=== PATIENT | male | born 1985 | race Caucasian/White ===

== ENCOUNTER 2020-08-16 11:25 | Emergency (ER) | payer BC, SELFPAY ==
[2020-08-16 12:00] VITALS: BP 121/77; PULSE 83; RESP 14; TEMP 36.9; O2SAT 98; BMI 24.3
--- NOTE | 2020-08-16 12:04 | HMH.EDUTC ---
[facility] [place] Disposition Clinical Impression: Exposure to COVID-19 virus Disposition: Home, Self-Care Condition on Discharge: Good Instructions: Preventing the Spread of Coronavirus Discharge Instructions Additional Instructions: Drink plenty of fluids. Take tylenol for pain or fever. Follow up with your regular doctor. GO TO THE ER FOR ANY WORSENING SYMPTOMS Referrals: Finesse Esquivel [Primary Care Provider] - Time of Disposition: 12:05 Medical Decision Making - Medical Records Medical records reviewed: No: I reviewed the patient's medical records. - To Inquiry Pt receiving controlled substance: No Vital Signs: 08/16/20 12:00 08/16/20 12:16 Temperature 98.5 F 98.5 F Temperature Source Oral Oral Pulse Rate 83 Pulse Rate [Radial] 83 Respiratory Rate 14 14 Blood Pressure 121/77 Blood Pressure [Right Arm] 121/77 Blood Pressure Mean [Right Arm] 91 Blood Pressure Source Automatic Cuff Blood Pressure Source [Right Arm] Automatic Cuff Blood Pressure Position Sitting Blood Pressure Position [Right Arm] Sitting 02 Sat by Pulse Oximetry 98 Oxygen Delivery Method Room Air Room Air Orders (Tests/Meds): ORDERS Category Date Time Status Covid-19 Nasal PCR Sendout Pee Stat Lab 08/16/20 11:51 Received [facility] [place] HPI - General Stated complaint: covid exposure Time Seen by Provider: 08/16/20 12:04 Mode of Arrival: Ambulatory Source of Information: Patient Limitations: No Limitations Description of Symptoms (Recalled from Triage Doc. by RN): covid test HEENT Symptoms (Recalled from RN notes): No Resp Symptoms (Recalled from RN notes): No Skin Symptoms (Recalled from RN notes): No MS Symptoms (Recalled from RN notes): No Functional Status (Recalled from RN notes): wnl - History of Present Illness Provider Complaint: He was exposed to covid by both his parents having it. He denies any symptoms at this time. - Related Data Allergies Allergy/AdvReac Type Severity Reaction Status Date / Time No Known Allergies Allergy Verified 08/16/20 12:03 - Worker's Comp Is this a Worker's Comp case?: No [facility] History - Hepatitis A Screen Drug use history?: No High risk sexual behaviors?: No History of sexually transmitted infection?: No Currently employed?: No Childcare worker?: No Do you have indoor plumbing?: Yes Do you have electricity?: Yes Attestation statement:: This patient has been screened for Hepatitis A risk factors. I have reviewed the patient's past medical history: Yes - Social History Smoking Status: Current every day smoker Tobacco Type: cigarettes # Packs/Day (cigarettes): 1 Alcohol Intake: never Occupational Status: other ROS Obtained: Yes All systems reviewed & no additional complaints - Constitutional Constitutional: Reports system reviewed and no additional complaints, except as docu - Eyes Eyes: Reports system reviewed and no additional complaints, except as docu - ENT Ears, Nose, Mouth, and Throat: Reports system reviewed and no additional complaints, except as docu - Cardiovascular Cardiovascular: Reports system reviewed and no additional complaints, except as docu - Respiratory Respiratory: Yes system reviewed and no additional complaints, except as docu Physical Exam - General General appearance: alert, in no apparent distress - Head Head exam: atraumatic, normocephalic, normal inspection - Eye Eye exam: Present: normal appearance, PERRL, EOMI - ENT ENT exam: Present: normal exam, normal oropharynx, mucous membranes moist, TM's normal bilaterally, normal external ear exam - Neck Neck exam: Present: normal inspection, full ROM, trachea midline. Absent: meningismus, lymphadenopathy - Chest Chest inspection: Present: normal inspection, symmetric chest wall rise. Absent: tenderness - Respiratory Respiratory exam: Present: normal lung sounds bilaterally. Absent: respiratory distress - Cardiovascular Cardiovascular exam: Presen
[2020-08-16 12:16] VITALS: BP 121/77; PULSE 83; RESP 14; TEMP 36.9; O2SAT 98
[2020-08-17 14:45] LABS: Covid-19 Nasal PCR Sendout Lex NOT DETECTED
== END 2020-08-16 12:17 | disposition home or self-care (01) ==
PROVIDERS: Emergency Provider Nurse Practitioner Family; PCP Pediatrics
DX: Z20.828 Contact with and (suspected) exposure to other viral communicable diseases (principal); F17.210 Nicotine dependence, cigarettes, uncomplicated
CPT/HCPCS: 99201; U0004

== ENCOUNTER 2021-06-29 08:59 | Emergency (ER) | payer BC, SELFPAY ==
[2021-06-29 09:00] VITALS: BP 122/76; PULSE 64; RESP 18; TEMP 36.6; O2SAT 98; BMI 25.4
--- NOTE | 2021-06-29 09:21 | HMH.EDUTC ---
[facility] [place] Disposition Clinical Impression: Conjunctivitis Qualifiers: Conjunctivitis type: acute Acute conjunctivitis type: unspecified Laterality: right Qualified Code(s): H10.31 - Unspecified acute conjunctivitis, right eye Disposition: Home, Self-Care Condition on Discharge: Good Instructions: Conjunctivitis Additional Instructions: Use the eye drops as directed. Strict hand washing in the house hold, because conjunctivitis is very contagious. Follow up with your regular doctor. GO TO THE ER FOR ANY WORSENING SYMPTOMS OR CONCERNS If you start to have the same symptoms in your other eye, start the drops in that eye too. It is hard to keep from spreading it to your other eye. Prescriptions: predniSONE [Deltasone 10mg tablet] 10 mg PO BID 3 Days #6 tab Transmission Status: Received by [id number] Moxifloxacin HCl [Vigamox] 1 drp EYE-RIGHT TID 7 Days #3 ml Transmission Status: Received by [id number] Referrals: Finesse Esquivel [Primary Care Provider] - Time of Disposition: 09:36 Medical Decision Making - Medical Records Medical records reviewed: No: I reviewed the patient's medical records. - To Inquiry Pt receiving controlled substance: No Vital Signs: 06/29/21 09:00 06/29/21 09:35 Temperature 97.9 F 97.9 F Temperature Source Oral Pulse Rate 64 Pulse Rate [Left Brachial] 64 Respiratory Rate 18 18 Blood Pressure 122/76 Blood Pressure [Left Arm] 122/76 Blood Pressure Mean [Left Arm] 91 Blood Pressure Source [Left Arm] Automatic Cuff Blood Pressure Position [Left Arm] Sitting 02 Sat by Pulse Oximetry 98 Oxygen Delivery Method Room Air [facility] [place] HPI - General Stated complaint: eye pain,cold Time Seen by Provider: 06/29/21 09:15 Mode of Arrival: Ambulatory Source of Information: Patient Limitations: No Limitations Description of Symptoms (Recalled from Triage Doc. by RN): PATIENT C/O SWELLING, SORENESS, AND DISCHARGE FROM RIGHT EYE X 2 DAYS HEENT Symptoms (Recalled from RN notes): Yes Resp Symptoms (Recalled from RN notes): No Skin Symptoms (Recalled from RN notes): No MS Symptoms (Recalled from RN notes): No Functional Status (Recalled from RN notes): WNL - History of Present Illness Provider Complaint: He c/o right eye itching and redness for the past 2 days. He has been exposed to pink eye at home by his child having it. He denies any vision changes. He denies any eye pain, other than the irritation. He denies any known injury or foreign body. - Related Data Previous Rx's Medication Instructions Recorded Moxifloxacin HCl [Vigamox] 1 drp EYE-RIGHT TID 7 Days #3 ml 06/29/21 predniSONE [Deltasone 10mg tablet] 10 mg PO BID 3 Days #6 tab 06/29/21 Allergies Allergy/AdvReac Type Severity Reaction Status Date / Time No Known Allergies Allergy Verified 08/16/20 12:03 - Worker's Comp Is this a Worker's Comp case?: No [facility] History - Hepatitis A Screen Drug use history?: No High risk sexual behaviors?: No History of sexually transmitted infection?: No Currently employed?: No Childcare worker?: No Do you have indoor plumbing?: Yes Do you have electricity?: Yes Attestation statement:: This patient has been screened for Hepatitis A risk factors. I have reviewed the patient's past medical history: Yes - Social History Smoking Status: Current every day smoker Tobacco Type: cigarettes # Packs/Day (cigarettes): 1 Alcohol Intake: never Occupational Status: other ROS Obtained: Yes All systems reviewed & no additional complaints - Constitutional Constitutional: Denies chills, Denies fever(s) - Eyes Eyes: Reports as per HPI - ENT Ears, Nose, Mouth, and Throat: Denies dizziness, Denies otalgia, Denies sore throat - Cardiovascular Cardiovascular: Denies chest pain - Respiratory Respiratory: Denies chest congestion, Denies cough, Denies stridor, Denies wheezing Physical Exam - General General appearance: alert, in no apparent dist
[2021-06-29 09:35] VITALS: BP 122/76; PULSE 64; RESP 18; TEMP 36.6; O2SAT 98
== END 2021-06-29 09:39 | disposition home or self-care (01) ==
PROVIDERS: Emergency Provider Nurse Practitioner Family; PCP Pediatrics
DX: H10.11 Acute atopic conjunctivitis, right eye (principal)
CPT/HCPCS: 99202; G0463

== ENCOUNTER 2021-07-03 09:51 | Emergency (ER) | payer BC, SELFPAY ==
[2021-07-03 10:30] VITALS: BP 125/84; PULSE 61; RESP 18; TEMP 36.7; O2SAT 96; BMI 25.4
[2021-07-03 10:46] LABS: UTC Strep Screen (Rapid) Positive (Negative)
--- NOTE | 2021-07-03 11:13 | HMH.EDUTC ---
[facility] [place] Clinical Impression: Strep throat Allergic conjunctivitis Qualifiers: Laterality: bilateral Qualified Code(s): H10.13 - Acute atopic conjunctivitis, bilateral Disposition: Home, Self-Care Condition on Discharge: Good Instructions: Strep Throat, DI for Strep Throat Additional Instructions: Use the pataday eye drops as directed. Take the antibiotics as directed. Follow up with your primary care doctor. Drink plenty of fluids. Take tylenol or ibuprofen for pain or fever. GO TO THE ER FOR ANY WORSENING SYMPTOMS Throw your tooth brush away and get a new one. Prescriptions: Amoxicillin/Potassium Clav [Augmentin 875-125 Tablet] 1 tab PO Q12H 10 Days #20 tab [id number] methylPREDNISolone [Medrol] 4 mg PO DIRECTED 6 Days #21 packet Transmission Status: Received by [id number] Olopatadine HCl [Pataday] 2.5 ml OP DIRECTED 10 Days #2.5 ml Transmission Status: [email or web address] Referrals: Finesse Esquivel [Primary Care Provider] - Time of Disposition: 11:26 Medical Decision Making - Medical Records Medical records reviewed: No: I reviewed the patient's medical records. - To Inquiry Pt receiving controlled substance: No Vital Signs: 07/03/21 10:30 07/03/21 11:25 Temperature 98.0 F 98.0 F Temperature Source Oral Pulse Rate 61 Pulse Rate [Right Brachial] 61 Respiratory Rate 18 18 Blood Pressure 125/84 Blood Pressure [Right Arm] 125/84 Blood Pressure Mean [Right Arm] 97 Blood Pressure Source [Right Arm] Automatic Cuff Blood Pressure Position [Right Arm] Sitting 02 Sat by Pulse Oximetry 96 Oxygen Delivery Method Room Air - Lab Data Lab Results 07/03/21 10:42: Strep Scn Rapid Clinic Positive A [facility] [place] - General Stated complaint: Sore throat; ear ache; Time Seen by Provider: 07/03/21 11:17 Mode of Arrival: Ambulatory Source of Information: Patient Limitations: No Limitations Description of Symptoms (Recalled from Triage Doc. by RN): PATIENT C/O WATERY EYES, EAR ACHE/PRESSURE, SORE THROAT AND COUGH THAT STARTED 2 DAYS AGO HEENT Symptoms (Recalled from RN notes): No Resp Symptoms (Recalled from RN notes): No Skin Symptoms (Recalled from RN notes): No MS Symptoms (Recalled from RN notes): No Functional Status (Recalled from RN notes): WNL - History of Present Illness Provider Complaint: He is back today with c/o sore throat. His eyes are still watering and burning also. His children are also sick with sore throat. - Related Data Previous Rx's Medication Instructions Recorded Amoxicillin/Potassium Clav 1 tab PO Q12H 10 Days #20 tab 07/03/21 [Augmentin 875-125 Tablet] Olopatadine HCl [Pataday] 2.5 ml OP DIRECTED 10 Days #2.5 07/03/21 ml methylPREDNISolone [Medrol] 4 mg PO DIRECTED 6 Days #21 07/03/21 packet Allergies Allergy/AdvReac Type Severity Reaction Status Date / Time No Known Allergies Allergy Verified 08/16/20 12:03 - Worker's Comp Is this a Worker's Comp case?: No [facility] History - Hepatitis A Screen Drug use history?: No High risk sexual behaviors?: No History of sexually transmitted infection?: No Currently employed?: No Childcare worker?: No Do you have indoor plumbing?: Yes Do you have electricity?: Yes Attestation statement:: This patient has been screened for Hepatitis A risk factors. I have reviewed the patient's past medical history: Yes - Social History Smoking Status: Current every day smoker Tobacco Type: cigarettes # Packs/Day (cigarettes): 1 Alcohol Intake: never Occupational Status: other ROS Obtained: Yes All systems reviewed & no additional complaints - Constitutional Constitutional: Reports chills, Denies fever(s), Reports poor appetite, Reports malaise - Eyes Eyes: Denies eye discharge - ENT Ears, Nose, Mouth, and Throat: Reports as per HPI - Cardiovascular Cardiovascular: Reports chest pain
[2021-07-03 11:25] VITALS: BP 125/84; PULSE 61; RESP 18; TEMP 36.7; O2SAT 96
== END 2021-07-03 11:32 | disposition home or self-care (01) ==
PROVIDERS: Emergency Provider Nurse Practitioner Family; PCP Pediatrics
DX: J02.0 Streptococcal pharyngitis (principal); H10.13 Acute atopic conjunctivitis, bilateral
CPT/HCPCS: 87880; 99202; G0463

== ENCOUNTER → 2021-09-29 15:30 | Outpatient (CLI) | payer OTHER, SELFPAY ==
--- NOTE | 2021-09-29 15:48 | XR_ITS ---
PROCEDURE: XR CHEST 2V CLINICAL HISTORY: COUGH COMPARISON: No exams were available for comparison FINDINGS: The cardiomediastinal silhouette and pulmonary vascularity are within normal limits. The lungs are clear without infiltrates, suspicious nodules, or pleural effusions. No acute bony abnormalities. IMPRESSION: No acute findings. Dictated by: Kervin Taylor MD 09/29/2021 16:36 Kervin Taylor MD in [place] 09/29/2021 16:36
[2021-09-29 15:59] LABS: Basophils # 0.1 K/mm3 (0-0.2); Basophils % 0.8 % (0.1-2.0); Eosinophils # 0.4 K/mm3 (0.0-0.4); Hematocrit 47.6 % (42.0-52.0); Hemoglobin 15.6 g/dL (14.1-18.0); Lymphocytes # 1.7 K/mm3 (0.7-4.5); Mean Corpuscular HGB Conc 32.8 g/dL (31.8-35.4); Mean Corpuscular Hemoglobin 31.4 pg (27.0-31.2); Mean Corpuscular Volume 95.8 fl (80-94); Mean Platelet Volume 7.6 fl (7.4-10.4); Monocytes # 0.7 K/mm3 (0.1-1.0); Monocytes % 7.7 % (1.7-9.3); Neutrophils # 5.8 K/mm3 (1.8-7.8); Neutrophils % 66.5 % (37.0-80.0); Platelet Count 417 K/mm3 (142-424); Red Blood Count 4.97 M/mm3 (4.60-6.20); White Blood Count 8.7 K/mm3 (4.8-10.8)
[2021-09-29 16:41] LABS: Alanine Aminotransferase 29 U/L (12-78); Albumin Level 4.5 g/dl (3.5-5.0); Albumin/Globulin Ratio 1.7 (1.1-1.8); Alkaline Phosphatase 86 U/L (38-126); Anion Gap 14.6 mEq/L (5-15); Aspartate Amino Transferase 45 U/L (17-59); Bilirubin,Total 0.5 mg/dl (0.2-1.3); Blood Urea Nitrogen 21 mg/dl (9-20); Calcium 9.9 mg/dl (8.4-10.2); Carbon Dioxide 27 mmol/L (22.0-30.0); Chloride 102 mmol/L (98-107); Estimated Glomerular Filt Rate 111 ml/min (>60); GFR (African American) 134 ML/MIN (>60); Globulin 2.7 g/dL (1.3-3.2); Glucose 101 mg/dl (74-100); Potassium 4.6 mmoL/L (3.5-5.1); Sodium 139 mmol/L (136-145); Total Protein,Serum 7.2 g/dl (6.3-8.2)
[2021-09-29 16:47] LABS: C-Reactive Protein 10.7 mg/L (0-4)
[2021-09-29 17:12] LABS: Erythrocyte Sedimentation Rate 38 mm/hr (0-15)
[2021-09-29 17:17] LABS: Thyroid Stimulating Hormone 1.35 uIU/mL (0.465-4.68)
== END ==
PROVIDERS: Visit Provider Family Medicine
DX: G44.52 New daily persistent headache (NDPH) (principal); R05.9 Cough, unspecified
CPT/HCPCS: 36415; 71046; 80053; 84443; 85025; 85651; 86140

== ENCOUNTER → 2021-10-09 15:20 | Outpatient (CLI) | payer OTHER, SELFPAY ==
--- NOTE | 2021-10-09 15:24 | MR_ITS ---
FINAL REPORT CLINICAL HISTORY: NEW DAILY PERSISTENT HEADACHE. headache [id number]. symptoms started x2wks post covid. FINDINGS: On the sagittal images, midline structures appear intact. On the T2 and flair axial images, brain parenchyma is homogeneous. No localized intra-axial signal abnormalities are seen. On the pre-and post infusion images, there is no evidence of abnormal enhancement. Extensive lobular mucoperiosteal thickening is seen in both maxillary sinuses. Mildly compressed of thickening is noted in the frontal sinuses. Seventh and eighth nerve root complexes appear intact. IMPRESSION: 1. No evidence of acute intra-axial abnormality. 2. Extensive changes of chronic bilateral maxillary sinusitis. Authenticated by Jeferson Franco MD on 10/09/2021 04:34:48 PM [facility]
== END ==
PROVIDERS: PCP Pediatrics; Visit Provider Family Medicine
DX: G44.52 New daily persistent headache (NDPH) (principal)
CPT/HCPCS: 70553; A9576

== ENCOUNTER 2022-09-21 14:36 | Emergency (ER) | payer OTHER, SELFPAY ==
[2022-09-21 15:50] VITALS: BP 141/90; PULSE 76; RESP 18; TEMP 36.7; O2SAT 100; BMI 25.8
--- NOTE | 2022-09-21 16:26 | EXP.UTC ---
Discharge Plan Disposition Patient Disposition: Home, Self-Care Condition: Good Prescriptions Prescriptions: New polymyxin B sulf-trimethoprim [Polytrim] 10,000 unit- 1 mg/mL drops 2 drp ophthalmic (eye) Q6H 7 Days Qty: 10 0RF Rx Instructions: while awake; do not exceed 6 doses in 24 hours No Action methylprednisolone 4 MG tablets,dose pack 4 mg PO DIRECTED 6 Days Qty: 21 0RF amoxicillin-pot clavulanate 1 EACH tablet 1 tab PO Q12H 10 Days Qty: 20 0RF olopatadine 2.5 ML drops 2.5 ml OP DIRECTED 10 Days Qty: 2.5 0RF Rx Instructions: use as directed. Referrals Follow up/Referrals: Finesse Carlos MD [Primary Care Provider] - See instructions Activity Restrictions/Add. Instructions Additional Instructions/Restrictions: Wash hands before and after applying eye drops to eye Clean matting from eye with warm water and baby shampoo Return if needed If no improvement follow up with Eye Doctor for further evaluation and treatment and follow up immediately if any changes in vision Clinical Impressions Clinical Impression: Conjunctivitis Qualifiers: Conjunctivitis type: unspecified Laterality: left Qualified Code(s): H10.9 - Unspecified conjunctivitis Stand Alone Forms Stand Alone Forms: Work/School Release Instructions Patient Instructions: Conjunctivitis, DI for Conjunctivitis, Polymyxin B and Trimethoprim Ophthalmic Discharge ED Provider: Alie Buck [facility] General Stated complaint: Eye Irr.possibly pink eye Mode of Arrival: Ambulatory Source of Information: Patient Limitations: No Limitations Time Seen by Provider: 09/21/22 16:26 Description of Symptoms (Recalled from Triage Doc. by RN): PATIENT C/O POSSIBLE PINK EYE TO LEFT EYE SINCE YESTERDAY HEENT Symptoms (Recalled from RN notes): Yes Resp Symptoms (Recalled from RN notes): No Skin Symptoms (Recalled from RN notes): No MS Symptoms (Recalled from RN notes): No Functional Status (Recalled from RN notes): WNL History of Present Illness Provider Complaint: Patient states that he woke up yesterday morning with his left eye matted and having drainage and redness States that since then it has continued to get worse so this evening he came in to get it checked out Related Data Previous Rx's Medication Instructions Recorded amoxicillin 875 mg-potassium 1 tab PO Q12H 10 days #20 tabs 07/03/21 clavulanate 125 mg tablet methylprednisolone 4 mg tablets in 4 mg PO DIRECTED 6 days #21 07/03/21 a dose pack packets olopatadine 0.2 % eye drops 2.5 ml OP DIRECTED 10 days #2.5 07/03/21 mL polymyxin B sulfate 10,000 2 drp ophthalmic (eye) Q6H 7 days 09/21/22 unit-trimethoprim 1 mg/mL eye #10 mL drops (Polytrim) Allergies Allergy/AdvReac Type Severity Reaction Status Date / Time No Known Allergies Allergy Verified 08/16/20 12:03 Worker's Comp Is this a Worker's Comp case?: No [facility] Disclaimer: The information contained in this section may have been updated after the patient was seen, as this information can be updated by other users. Medical History (Updated 09/21/22 @ 16:34 by Alie Buck APRN) No significant past medical history Social History (Updated 09/21/22 @ 16:09 by Shahida Dougherty RN) Smoking Status: Current every day smoker tobacco type: cigarettes packs per day: 1 second hand exposure: Yes alcohol intake: never current occupational status: other Travel in the last 8 weeks: None ROS Obtained: Yes All systems reviewed & no additional complaints except as documented and Yes Systems reviewed as appropriate & no additional complaints except as documented Constitutional Constitutional: Reports system reviewed and no additional complaints, except as documented and Reports as per HPI Eyes Eyes: Reports system reviewed and no additional complaints, except as documented, Reports as per HPI, Reports eye discharge and Reports irritation ENT Ears, Nose, Mouth, and Throat: R
[2022-09-21 16:38] VITALS: BP 141/90; PULSE 76; RESP 18; TEMP 36.7; O2SAT 100
== END 2022-09-21 16:42 | disposition home or self-care (01) ==
PROVIDERS: Emergency Provider Nurse Practitioner; PCP Family Medicine
DX: H10.9 Unspecified conjunctivitis (principal)
CPT/HCPCS: 99212; G0463

== ENCOUNTER 2022-09-29 09:13 | Emergency (ER) | payer OTHER, SELFPAY ==
--- NOTE | 2022-09-29 09:18 | EXP.UTC ---
Discharge Plan Disposition Patient Disposition: Home, Self-Care Condition: Good Prescriptions Prescriptions: New azithromycin [Zithromax] 250 mg tablet 250 mg PO UD DOSE PK Qty: 6 0RF Rx Instructions: Take two (2) tablets today, then one (1) tablet days #2 thru #5 ofloxacin 0.3 % drops See Rx Instructions .ROUTE .COMPLEX Qty: 5 0RF Rx Instructions: put 1 drp into affected eye every 2 h x 2 days, then 1 drp 4 times/day days 3-7 methylprednisolone 4 mg Tablets,Dose Pack 4 mg PO DIRECTED Qty: 21 0RF No Action methylprednisolone 4 MG tablets,dose pack 4 mg PO DIRECTED 6 Days Qty: 21 0RF amoxicillin-pot clavulanate 1 EACH tablet 1 tab PO Q12H 10 Days Qty: 20 0RF olopatadine 2.5 ML drops 2.5 ml OP DIRECTED 10 Days Qty: 2.5 0RF Rx Instructions: use as directed. polymyxin B sulf-trimethoprim [Polytrim] 10,000 unit- 1 mg/mL drops 2 drp ophthalmic (eye) Q6H 7 Days Qty: 10 0RF Rx Instructions: while awake; do not exceed 6 doses in 24 hours Referrals Follow up/Referrals: Finesse Carlos MD [Primary Care Provider] - See instructions Activity Restrictions/Add. Instructions Additional Instructions/Restrictions: Drink plenty of fluids. Take tylenol or ibuprofen for pain or fever. Take the medications as directed. Follow up with your regular doctor. GO TO THE ER FOR ANY WORSENING SYMPTOMS Clinical Impressions Clinical Impression: Conjunctivitis Instructions Patient Instructions: How to Instill Eye Drops, DI for Sinusitis Discharge ED Provider: Roger Nazario [facility] General Stated complaint: Persistant cough, drainage, pain in LT eye Time Seen by Provider: 09/29/22 09:47 History of Present Illness Provider Complaint: He states that for the past 2 days he has had cough, low grade fever. This morning he started having right eye redness and irritation. He denies any eye injury or possibility of foreign body. Related Data Previous Rx's Medication Instructions Recorded amoxicillin 875 mg-potassium 1 tab PO Q12H 10 days #20 tabs 07/03/21 clavulanate 125 mg tablet methylprednisolone 4 mg tablets in 4 mg PO DIRECTED 6 days #21 07/03/21 a dose pack packets olopatadine 0.2 % eye drops 2.5 ml OP DIRECTED 10 days #2.5 07/03/21 mL polymyxin B sulfate 10,000 2 drp ophthalmic (eye) Q6H 7 days 09/21/22 unit-trimethoprim 1 mg/mL eye #10 mL drops (Polytrim) azithromycin 250 mg tablet 250 mg PO UD DOSE PK #6 tabs 09/29/22 (Zithromax) methylprednisolone 4 mg tablets in 4 mg PO DIRECTED #21 tabs 09/29/22 a dose pack ofloxacin 0.3 % eye drops See Rx Instructions ophthalmic 09/29/22 (eye) .COMPLEX #5 mL Allergies Allergy/AdvReac Type Severity Reaction Status Date / Time No Known Allergies Allergy Verified 09/29/22 10:03 [facility] Disclaimer: The information contained in this section may have been updated after the patient was seen, as this information can be updated by other users. Medical History No significant past medical history Social History Smoking Status: Current every day smoker tobacco type: cigarettes packs per day: 1 second hand exposure: Yes alcohol intake: never current occupational status: other Travel in the last 8 weeks: None ROS Obtained: Yes All systems reviewed & no additional complaints except as documented Constitutional Constitutional: Denies body ache, Reports chills and Reports fever(s) Eyes Eyes: Reports eye discharge ENT Ears, Nose, Mouth, and Throat: Reports as per HPI Cardiovascular Cardiovascular: Denies chest pain Respiratory Respiratory: Denies chest congestion and Reports cough Gastrointestinal Gastrointestingal: Reports nausea; Denies abdominal pain, constipation, cramping, diarrhea or vomiting Musculoskeletal Musculoskeletal: Denies arthralgias Integumentar
[2022-09-29 09:59] VITALS: BP 141/86; PULSE 70; RESP 18; TEMP 36.6; O2SAT 98; BMI 24.9
[2022-09-29 10:32] VITALS: BP 141/86; PULSE 70; RESP 18; TEMP 36.6
== END 2022-09-29 10:34 | disposition home or self-care (01) ==
PROVIDERS: Emergency Provider Nurse Practitioner Family; PCP Family Medicine
DX: H10.9 Unspecified conjunctivitis (principal)
CPT/HCPCS: 99212; G0463

== ENCOUNTER 2023-06-17 14:17 | Emergency (ER) | payer OTHER, SELFPAY ==
[2023-06-17 14:20] VITALS: BP 120/79; PULSE 78; RESP 18; TEMP 36.6; O2SAT 95; BMI 25.4
--- NOTE | 2023-06-17 14:26 | EXP.UTC ---
Discharge Plan Disposition Patient Disposition: Home, Self-Care Condition: Good Prescriptions Prescriptions: New ondansetron 4 mg Tablet,Disintegrating 4 mg PO Q8H PRN (Reason: Nausea) Qty: 12 0RF ibuprofen [IBU] 800 mg tablet 800 mg PO Q8HP PRN (Reason: Moderate Pain) Qty: 30 0RF Referrals Follow up/Referrals: Finesse Carlos MD [Primary Care Provider] - See instructions Activity Restrictions/Add. Instructions Additional Instructions/Restrictions: Drink plenty of fluids. Take tylenol or ibuprofen for pain or fever. Take the medications as directed. Follow up with your regular doctor. GO TO THE ER FOR ANY WORSENING SYMPTOMS Clinical Impressions Clinical Impression: Acute viral syndrome Instructions Patient Instructions: DI for Viral Syndrome Discharge ED Provider: Roger Nazario [facility] HPI General Stated complaint: back pain,nausea,headache Time Seen by Provider: 06/17/23 14:25 History of Present Illness Provider Complaint: He states that he began to feel bad yesterday. He has had a headache, chills, fever, and malaise. Related Data Previous Rx's Medication Instructions Recorded ibuprofen 800 mg tablet (IBU) 800 mg PO Q8HP PRN Moderate Pain 06/17/23 #30 tabs ondansetron 4 mg disintegrating 4 mg PO Q8H PRN Nausea #12 tabs 06/17/23 tablet Allergies Allergy/AdvReac Type Severity Reaction Status Date / Time No Known Allergies Allergy Verified 06/17/23 14:37 [facility] Disclaimer: The information contained in this section may have been updated after the patient was seen, as this information can be updated by other users. Medical History No significant past medical history Social History Smoking Status: Current every day smoker tobacco type: cigarettes packs per day: 1 second hand exposure: Yes alcohol intake: never current occupational status: other Travel in the last 8 weeks: None ROS Obtained: Yes All systems reviewed & no additional complaints except as documented Constitutional Constitutional: Reports chills and Reports fever(s) Eyes Eyes: Denies eye discharge ENT Ears, Nose, Mouth, and Throat: Reports as per HPI Cardiovascular Cardiovascular: Denies chest pain Respiratory Respiratory: Denies chest congestion and Reports cough Gastrointestinal Gastrointestingal: Reports nausea; Denies abdominal pain, constipation, cramping, diarrhea or vomiting Musculoskeletal Musculoskeletal: Denies arthralgias Integumentary/Breasts Skin/Breast: Denies rash Neurologic Neurologic: Denies paresthesias Physical Exam General General appearance: alert and in no apparent distress Head Head exam: atraumatic, normocephalic and normal inspection Eye Eye exam: Present normal appearance, PERRL and EOMI ENT ENT exam: Present normal exam, normal oropharynx, mucous membranes moist, TM's normal bilaterally and normal external ear exam Neck Neck exam: Present normal inspection, full ROM and trachea midline; Absent meningismus or lymphadenopathy Chest Chest inspection: Present normal inspection and symmetric chest wall rise; Absent tenderness Respiratory Respiratory exam: Present normal lung sounds bilaterally; Absent respiratory distress Cardiovascular Cardiovascular exam: Present regular rate and normal rhythm; Absent JVD Abdominal Exam Abdominal exam: Present soft and normal bowel sounds; Absent distention, tenderness or guarding Extremities Exam Extremities exam: Present normal inspection, full ROM and normal capillary refill; Absent calf tenderness Back Exam Back exam: Present normal inspection; Absent tenderness Neurological Exam Neurological exam: Present alert and oriented X3 Psychiatric Psychiatric exam: Present normal affect and normal mood Skin Skin exam: Present warm, dry, intact and normal color Lymphatic Lymphatic Findings: no adenopathy Medical Decision
[2023-06-17 15:06] LABS: Adenovirus,PCR Not Detected (NotDetected); Bordetella Pertussis Not Detected (NotDetected); Chlamydophila Pneumoniae, PCR Not Detected (NotDetected); Coronavirus 19, PCR Not Detected (NotDetected); Coronavirus 229E Not Detected (NotDetected); Coronavirus NL63 Not Detected (NotDetected); Coronavirus OC43 Not Detected (NotDetected); Coronovirus HKU1,PCR Not Detected (NotDetected); Human Metapneumovirus Not Detected (NotDetected); Influenza A, PCR Not Detected (NotDetected); Influenza AH1, 2009 Not Detected (NotDetected); Influenza AH1, PCR Not Detected (NotDetected); Influenza AH3,PCR Not Detected (NotDetected); Influenza B, PCR Not Detected (NotDetected); Mycoplasma Pneumoniae, PCR Not Detected (NotDetected); Parainfluenza 1, PCR Not Detected (NotDetected); Parainfluenza 2, PCR Not Detected (NotDetected); Parainfluenza 3, PCR Not Detected (NotDetected); Parainfluenza 4, PCR Not Detected (NotDetected); Respiratory Syncytial Virus Not Detected (NotDetected); Rhinovirus/Enterovirus Not Detected (NotDetected)
[2023-06-17 15:13] VITALS: BP 120/79; PULSE 78; RESP 18; TEMP 36.6; O2SAT 95
== END 2023-06-17 15:13 | disposition home or self-care (01) ==
PROVIDERS: Emergency Provider Nurse Practitioner Family; PCP Family Medicine
DX: R51.9 Headache, unspecified (principal); R50.9 Fever, unspecified; R53.81 Other malaise; F17.210 Nicotine dependence, cigarettes, uncomplicated; R11.0 Nausea; B34.9 Viral infection, unspecified
CPT/HCPCS: 87581; 87632; 87798; 96372; 99212; 99214; G0463

== ENCOUNTER 2023-10-09 09:11 | Emergency (ER) | payer OTHER, SELFPAY ==
[2023-10-09 09:35] VITALS: BP 110/85; PULSE 82; RESP 19; TEMP 36.9; O2SAT 98; BMI 25.4
--- NOTE | 2023-10-09 09:54 | EXP.UTC ---
Discharge Plan Disposition Patient Disposition: Home, Self-Care Condition: Good Prescriptions Prescriptions: New amoxicillin 875 mg tablet 875 mg PO Q12H Qty: 20 0RF Referrals Follow up/Referrals: Finesse Carlos MD [Primary Care Provider] - See instructions Activity Restrictions/Add. Instructions Additional Instructions/Restrictions: *Monitor Temp, Over the counter Motrin or Tylenol as directed/as needed Tylenol every 4 hours and Motrin every 6 hours (as long as your family doctor has told you that you can take it) for fever or pain. and straight to ER if unable to lower temp less than 101.0 after medication given *Warm salt water gargles may help to soothe the throat *Throat Lozenges? *Warm fluids like tea with honey may help to soothe the throat? *Sleep elevated *Humidifier/Vaporizer *Your throat swab was sent for culture. Those results are typically sent to your primary care. Be sure to follow up in 2-3 days with your family doctor/primary care physician if no improvement so they can review those result and treat if necessary. If you don?t have a primary care doctor, I recommend you get one but in the mean time, you will have to return to a walk in clinic Follow up IMMEDIATELY for new or worsening symptoms or no Noticeable improvement over the next 48-72 hours. 911 for difficulty breathing or swallowing Clinical Impressions Clinical Impression: Pharyngitis Qualifiers: Pharyngitis/tonsillitis etiology: unspecified etiology Qualified Code(s): J02.9 - Acute pharyngitis, unspecified Instructions Patient Instructions: Sore Throat, Amoxicillin Discharge ED Provider: Alie Buck [facility] General Stated complaint: sore throat, runny nose Mode of Arrival: Ambulatory Source of Information: Patient Limitations: No Limitations Time Seen by Provider: 10/09/23 09:54 Description of Symptoms (Recalled from Triage Doc. by RN): PATIENT C/O SORE THROAT, COUGH, RUNNY NOSE, AND HEADACHE SINCE YESTERDAY. RECENTLY EXPOSED TO STREP HEENT Symptoms (Recalled from RN notes): Yes Resp Symptoms (Recalled from RN notes): Yes Skin Symptoms (Recalled from RN notes): No MS Symptoms (Recalled from RN notes): No Functional Status (Recalled from RN notes): WNL History of Present Illness Provider Complaint: Patient states that his son has strep throat and now he started yesterday with sore throat, headache, cough and runny nose so today he came in to get checked Related Data Previous Rx's Medication Instructions Recorded amoxicillin 875 mg tablet 875 mg PO Q12H #20 tabs 10/09/23 Allergies Allergy/AdvReac Type Severity Reaction Status Date / Time No Known Allergies Allergy Verified 06/17/23 14:37 Worker's Comp Is this a Worker's Comp case?: [facility] Disclaimer: The information contained in this section may have been updated after the patient was seen, as this information can be updated by other users. Medical History No significant past medical history Social History Smoking Status: Current every day smoker tobacco type: cigarettes packs per day: 1 second hand exposure: Yes alcohol intake: never current occupational status: other Travel in the last 8 weeks: None ROS Obtained: Yes All systems reviewed & no additional complaints except as documented and Yes Systems reviewed as appropriate & no additional complaints except as documented Constitutional Constitutional: Reports system reviewed and no additional complaints, except as documented, Reports as per HPI, Reports fever(s) and Reports headache(s) ENT Ears, Nose, Mouth, and Throat: Reports system reviewed and no additional complaints, except as documented, Reports as per HPI, Reports headache(s), Reports nasal congestion, Reports nasal discharge and Reports sore throat Cardiovascular Cardiovascular: Reports system reviewed and no additional complaints, except as documented and Reports as per HPI Respiratory Respiratory: Reports system reviewed and no additional complaints, except as documented, Reports as per HPI and Reports cough Gastrointestinal Gastrointestingal: Reports system reviewed and no additional complaints, except as documented and as per HPI Musculoskeletal Musculoskeletal: Reports system reviewed and no additional complaints, except as documented and Reports as per HPI Neurologic Neurologic: Reports headache(s) Physical Exam General General appearance: alert and in no apparent distress ENT ENT exam: Present mucous membranes moist Expanded ENT Exam Throat exam: Present tonsillar erythema (patchy like area noted ) Respiratory Respiratory exam: Present normal lung sounds bilaterally; Absent respiratory distress or wheezes Cardiovascular Cardiovascular exam: Present regular rate, normal rhythm and normal heart sounds Abdominal Exam Abdominal exam: Present soft and normal bowel sounds; Absent distention or tenderness Neurological Exam Neurological exam: Present alert, oriented X3 and normal gait Medical Decision Making To Inquiry Pt receiving controlled substance: No To was queried for this patient: No Vital Signs: 10/09/23 09:35 Temperature 98.5 F Temperature Source Oral Pulse Rate [Left Brachial] 82 Respiratory Rate 19 Blood Pressure [Left Arm] 110/85 Blood Pressure Mean [Left Arm] 93 Blood Pressure Source [Left Arm] Automatic Cuff Blood Pressure Position [Left Arm] Sitting 02 Sat by Pulse Oximetry 98 Oxygen Delivery Method Room Air Lab Data Lab results reviewed: Yes I reviewed the patient's lab results.
[2023-10-09 09:56] LABS: UTC Strep Screen (Rapid) Negative (Negative)
[2023-10-09 10:05] VITALS: BP 110/85; PULSE 82; RESP 19; TEMP 36.9; O2SAT 98
== END 2023-10-09 10:09 | disposition home or self-care (01) ==
PROVIDERS: Emergency Provider Nurse Practitioner; PCP Family Medicine
DX: J02.9 Acute pharyngitis, unspecified (principal); R51.9 Headache, unspecified; R05.9 Cough, unspecified; R09.81 Nasal congestion; F17.210 Nicotine dependence, cigarettes, uncomplicated
CPT/HCPCS: 87880; 99212; 99214; G0463

== ENCOUNTER 2023-11-08 08:04 | Emergency (ER) | payer OTHER, SELFPAY ==
[2023-11-08 08:10] VITALS: BP 119/79; PULSE 76; RESP 18; TEMP 37.1; O2SAT 96; BMI 26.1
--- NOTE | 2023-11-08 08:20 | EXP.UTC ---
Discharge Plan Disposition Patient Disposition: Home, Self-Care Condition: Good Prescriptions Prescriptions: New prednisone [prednisone] 20 mg tablet 20 mg PO BID 3 Days Qty: 6 0RF amoxicillin [amoxicillin] 875 mg tablet 875 mg PO Q12H Qty: 20 0RF [id number] [Bromfed DM] 2-30-10 mg/5 mL Syrup 5 ml PO Q6H PRN (Reason: Cough) Qty: 240 0RF Referrals Follow up/Referrals: Finesse Carlos MD [Primary Care Provider] - See instructions Activity Restrictions/Add. Instructions Additional Instructions/Restrictions: Drink plenty of fluids. Take tylenol or ibuprofen for pain or fever. Take the medications as directed. Follow up with your regular doctor. GO TO THE ER FOR ANY WORSENING SYMPTOMS Throw your tooth brush away and get a new one. Clinical Impressions Clinical Impression: Strep pharyngitis Instructions Patient Instructions: Strep Throat, DI for Strep Throat Discharge ED Provider: Roger Nazario [facility] General Stated complaint: fever, chills, body ache, nausea, fatique, headach Time Seen by Provider: 11/08/23 08:20 History of Present Illness Provider Complaint: He states that for the past 2 days he has had sore throat, chills, malaise, cough, fever and body aches. Related Data Previous Rx's Medication Instructions Recorded amoxicillin 875 mg tablet 875 mg PO Q12H #20 tabs 11/08/23 [id number] 5 ml PO Q6H PRN Cough #240 mL 11/08/23 2 mg-30 mg-10 mg/5 mL oral syrup (Bromfed DM) prednisone 20 mg tablet 20 mg PO BID 3 days #6 tabs 11/08/23 Allergies Allergy/AdvReac Type Severity Reaction Status Date / Time No Known Allergies Allergy Verified 11/08/23 08:23 [facility] Disclaimer: The information contained in this section may have been updated after the patient was seen, as this information can be updated by other users. Medical History No significant past medical history Social History Smoking Status: Current every day smoker tobacco type: cigarettes packs per day: 1 second hand exposure: Yes alcohol intake: never current occupational status: other Travel in the last 8 weeks: None ROS Obtained: Yes All systems reviewed & no additional complaints except as documented Constitutional Constitutional: Reports chills and Reports fever(s) Eyes Eyes: Denies eye discharge ENT Ears, Nose, Mouth, and Throat: Reports as per HPI Cardiovascular Cardiovascular: Denies chest pain Respiratory Respiratory: Denies chest congestion and Reports cough Gastrointestinal Gastrointestingal: Reports nausea; Denies abdominal pain, constipation, cramping, diarrhea or vomiting Musculoskeletal Musculoskeletal: Denies arthralgias Integumentary/Breasts Skin/Breast: Denies rash Neurologic Neurologic: Denies paresthesias Physical Exam General General appearance: alert and in no apparent distress Head Head exam: atraumatic, normocephalic and normal inspection Eye Eye exam: Present normal appearance, PERRL and EOMI ENT ENT exam: Present mucous membranes moist and normal external ear exam Expanded ENT Exam TM/Canal exam: Bilateral TM: erythema and bulging Nose exam: Absent sinus tenderness Mouth exam: Present normal external inspection; Absent drooling Teeth exam: Present normal inspection Throat exam: Present tonsillar erythema, tonsillomegaly and tonsillar exudate Neck Neck exam: Present normal inspection, full ROM and trachea midline; Absent tenderness, meningismus or lymphadenopathy Chest Chest inspection: Present normal inspection and symmetric chest wall rise; Absent tenderness Respiratory Respiratory exam: Present normal lung sounds bilaterally; Absent respiratory distress, wheezes or stridor Cardiovascular Cardiovascular exam: Present regular rate and normal rhythm; Absent systolic murmur or diastolic murmur Abdominal Exam Abdominal exam: Present soft and normal bowel sounds; Absent distention, tenderness, guarding, rebound or rigidity Extremities Exam Extremities exam: Present normal inspection and normal capillary refill; Absent calf tenderness Back Exam Back exam: Present normal inspection and full ROM; Absent tenderness, CVA tenderness (R) or CVA tenderness (L) Neurological Exam Neurological exam: Present alert, oriented X3 and CN II-XII intact Psychiatric Psychiatric exam: Present normal affect and normal mood Skin Skin exam: Present warm, dry, intact and normal color Medical Decision Making Medical Records Medical records reviewed: No I reviewed the patient's medical records. To Inquiry Pt receiving controlled substance: No Lab Data Lab results reviewed: Yes I reviewed the patient's lab results.
[2023-11-08 08:34] LABS: UTC Influenza A Antigen Negative (Negative); UTC Influenza B Antigen Negative (Negative)
[2023-11-08 08:52] LABS: UTC Strep Screen (Rapid) Positive (Negative)
[2023-11-08 08:59] VITALS: BP 119/79; PULSE 76; RESP 18; TEMP 37.1; O2SAT 96
== END 2023-11-08 08:59 | disposition home or self-care (01) ==
PROVIDERS: Emergency Provider Nurse Practitioner Family; PCP Family Medicine
DX: J02.0 Streptococcal pharyngitis (principal); R07.0 Pain in throat; R50.9 Fever, unspecified; R05.9 Cough, unspecified; R53.81 Other malaise; M79.18 Myalgia, other site; F17.210 Nicotine dependence, cigarettes, uncomplicated
CPT/HCPCS: 87804; 87880; 99212; 99214; G0463